=== PATIENT | male | born 1950 | race Caucasian/White ===

== ENCOUNTER 2016-05-21 21:42 | Emergency (ER) | payer MEDICARE, OTHER ==
[~2016-05-21] VITALS: Ht 177.8 cm; Wt 71.3 kg
[~2016-05-21 21:42] MED LIST: AMOX1TAB16 PO; AZIT250T6 PO; LURA40 PO; MIRT15 PO; OMEP10 PO; QUET200T PO; VALP250 PO
[2016-05-21] MEDS ORDERED: BENZ1TAB10 PO (22:08)
[2016-05-21] MEDS ORDERED: HALO5 PO (22:08)
[2016-05-21] MEDS ORDERED: SENN-30 PO (22:08)
[2016-05-21] MEDS ORDERED: CLOZ100 PO (22:08)
[2016-05-21] MEDS ORDERED: TOPI25 PO (22:08)
[2016-05-21] MEDS ORDERED: HALOPERIDOL 5 MG TABLET PO ONE (22:30)
[2016-05-21] MEDS ORDERED: LORazepam 2 MG TABLET PO ONE (22:30)
[2016-05-21 23:40] VITALS: BP 126/77
== END 2016-05-21 23:39 | disposition home or self-care (01) ==
LOC: EMS 21:45
DX: F20.9 Schizophrenia, unspecified (principal); F32.9 Major depressive disorder, single episode, unspecified; F41.9 Anxiety disorder, unspecified; J45.909 Unspecified asthma, uncomplicated; J44.9 Chronic obstructive pulmonary disease, unspecified; K21.9 Gastro-esophageal reflux disease without esophagitis; I10 Essential (primary) hypertension; F17.200 Nicotine dependence, unspecified, uncomplicated; Z88.8 Allergy status to other drugs, medicaments and biological substances
CPT/HCPCS: 99284

== ENCOUNTER 2022-05-01 13:13 | Inpatient (IN) | payer MEDICARE, MEDICAID ==
[~2022-05-01] VITALS: Ht 177.8 cm; Wt 62.3 kg
[~2022-05-01 13:13] MED LIST changes: -AMOX1TAB16 PO; -AZIT250T6 PO; +BENZ1TAB96 PO; +CLOZ100T68 PO; +HALO5TAB2 PO; -LURA40 PO; -MIRT15 PO; -QUET200T PO; +SENN-277 PO; +TOPI25 PO; -VALP250 PO; +VALP250C48 PO
[2022-05-01 15:05] LABS: BASOPHILS % (AUTO) 0.6 % (0.0-2.0); EOSINOPHILS % (AUTO) 1.3 % (1.0-6.0); HEMATOCRIT 41.5 % (41-53); HEMOGLOBIN 13.3 g/dL (13.5-17.5); LYMPHOCYTES # (AUTO) 1.5 K/uL (1.0-4.8); LYMPHOCYTES % (AUTO) 21.2 % (22.0-44.0); MEAN CORPUSCULAR HEMOGLOBIN 30.5 pg (26.0-34.0); MEAN CORPUSCULAR VOLUME 95 fL (80-100); MONOCYTES # (AUTO) 0.7 K/uL (0.1-1.0); MONOCYTES % (AUTO) 9.9 % (2.0-9.0); NEUTROPHILS # (AUTO) 4.8 K/uL (1.8-7.7); PLATELET COUNT (AUTO) 247 K/uL (150-450); RED BLOOD CELL COUNT(AUTO) 4.36 MIL/uL (4.50-5.90)
[2022-05-01 15:14] LABS: ANION GAP 6 mmol/L (8-16); CALCIUM, TOTAL 9.2 mg/dL (8.8-10.5); CARBON DIOXIDE 29 mmol/L (22-29); CHLORIDE 102 mmol/L (98-107); GLOMERULAR FILTR. RATE CALC > 60 mL/min (>60); GLUCOSE,RANDOM 65 mg/dL (70-110); POTASSIUM 4.5 mmol/L (3.5-5.1); SODIUM SERUM 137 mmol/L (136-145); UREA NITROGEN, BLOOD 24 mg/dL (7-18)
[2022-05-01 15:19] LABS: ALANINE AMINOTRANSFERASE 19 U/L (12-78); ALBUMIN 3.4 g/dL (3.4-5.0); ALKALINE PHOSPHATASE 109 U/L (46-116); ASPARTATE AMINOTRANSFERASE 18 U/L (15-37); BILIRUBIN,TOTAL 0.3 mg/dL (0.1-1.0); TOTAL PROTEIN, SERUM 7.1 g/dL (6.4-8.2)
[2022-05-01] MEDS ORDERED: LORazepam 2 MG TABLET PO PRN (16:45)
[2022-05-01] MEDS ORDERED: ZOLPIDEM TARTRATE 10 MG TABLET PO PRN (16:45)
[2022-05-01] MEDS ORDERED: HALOPERIDOL 5 MG TABLET PO PRN (16:45)
[2022-05-01] MEDS ORDERED: OMEP20 PO (16:46)
[2022-05-01 17:11] LABS: COVID AG,FIA SOURCE NASOPHARYNGEAL
[2022-05-02 00:30] VITALS: BP 159/74
[2022-05-02] MEDS: NICOTINE 14 MG/24 HOUR PATCH TD SCH (09:00)
[2022-05-02 10:10] VITALS: BP 160/90
[2022-05-02] MEDS: BENZTROPINE MESYLATE 1 MG TABLET PO SCH ×2 (10:30→17:00)
[2022-05-02] MEDS: HALOPERIDOL 5 MG TABLET PO SCH ×2 (10:30→17:00)
[2022-05-02] MEDS: VALPROIC ACID 250 MG CAPSULE PO SCH ×2 (10:30→17:00)
[2022-05-02] MEDS: TOPIRAMATE 25 MG TABLET PO SCH ×2 (10:30→17:00)
[2022-05-02] MEDS ORDERED: CloNIDine HCL 0.1 MG TABLET PO PRN (15:15)
[2022-05-02] MEDS ORDERED: ACETAMINOPHEN 325 MG TABLET PO PRN (15:15)
[2022-05-02] MEDS ORDERED: NICOTINE 14 MG/24 HOUR PATCH TD PRN (15:15)
[2022-05-02] MEDS ORDERED: MAGNESIUM HYDROXIDE SUSPENSION 30 ML UDCUP PO PRN (15:15)
[2022-05-02] MEDS ORDERED: ONDANSETRON HCL 4 MG TABLET PO PRN (15:15)
[2022-05-02] MEDS ORDERED: IBUPROFEN 400 MG TABLET PO PRN (15:15)
[2022-05-02] MEDS ORDERED: PETROLATUM,WHITE 28 GM JELLY TP PRN (15:15)
[2022-05-02] MEDS ORDERED: DOCUSATE SODIUM 100 MG CAPSULE PO PRN (15:15)
[2022-05-02] MEDS ORDERED: ALBUTEROL SULFATE HFA 90 MCG/PUFF 8 GM INHALER IH PRN (15:15)
[2022-05-02] MEDS ORDERED: GuaiFENesin/D-METHORPHAN [SUGAR-FREE] 200-20MG/10 ML SYRUP UDCUP PO PRN (15:15)
[2022-05-02] MEDS ORDERED: MAG HYDROX/AL HYDROX/SIMETH ES 30 ML SUSPENSION UDCUP PO PRN (15:15)
[2022-05-02] MEDS ORDERED: LOPERAMIDE HCL 2 MG CAPSULE PO PRN (15:15)
[2022-05-02 16:45] VITALS: BP 139/88
[2022-05-02] MEDS: CloZAPine 100 MG TABLET PO SCH (21:49)
[2022-05-03 08:50] VITALS: BP 106/65
[2022-05-03] MEDS: TOPIRAMATE 25 MG TABLET PO SCH ×2 (09:00→16:38)
[2022-05-03] MEDS: BENZTROPINE MESYLATE 1 MG TABLET PO SCH ×2 (09:00→16:37)
[2022-05-03] MEDS: VALPROIC ACID 250 MG CAPSULE PO SCH ×2 (09:00→16:38)
[2022-05-03] MEDS: OMEPRAZOLE 20 MG CAPSULE PO SCH (09:00)
[2022-05-03] MEDS: HALOPERIDOL 5 MG TABLET PO SCH ×2 (09:00→16:38)
[2022-05-03] MEDS: NICOTINE 14 MG/24 HOUR PATCH TD SCH (09:00)
[2022-05-03 16:15] VITALS: BP 106/64
[2022-05-03] MEDS: CloZAPine 100 MG TABLET PO SCH (21:00)
[2022-05-04 08:52] VITALS: BP 146/96
[2022-05-04] MEDS: HALOPERIDOL 5 MG TABLET PO SCH ×2 (09:00→17:00)
[2022-05-04] MEDS: OMEPRAZOLE 20 MG CAPSULE PO SCH (09:00)
[2022-05-04] MEDS: NICOTINE 14 MG/24 HOUR PATCH TD SCH (09:00)
[2022-05-04] MEDS: TOPIRAMATE 25 MG TABLET PO SCH ×2 (09:00→17:00)
[2022-05-04] MEDS: VALPROIC ACID 250 MG CAPSULE PO SCH ×2 (09:00→17:00)
[2022-05-04] MEDS: BENZTROPINE MESYLATE 1 MG TABLET PO SCH ×2 (09:00→17:00)
[2022-05-04 16:20] VITALS: BP 128/75
[2022-05-04] MEDS: CloZAPine 100 MG TABLET PO SCH (20:34)
[2022-05-05] MEDS: HALOPERIDOL 5 MG TABLET PO SCH ×2 (09:00→17:00)
[2022-05-05] MEDS: NICOTINE 14 MG/24 HOUR PATCH TD SCH (09:00)
[2022-05-05] MEDS: OMEPRAZOLE 20 MG CAPSULE PO SCH (09:00)
[2022-05-05] MEDS: TOPIRAMATE 25 MG TABLET PO SCH ×2 (09:00→17:00)
[2022-05-05] MEDS: VALPROIC ACID 250 MG CAPSULE PO SCH ×2 (09:00→17:00)
[2022-05-05] MEDS: BENZTROPINE MESYLATE 1 MG TABLET PO SCH ×2 (09:00→17:00)
[2022-05-05 09:18] VITALS: BP 112/60
[2022-05-05 16:00] VITALS: BP 134/100
[2022-05-05] MEDS: CloZAPine 100 MG TABLET PO SCH (20:58)
[2022-05-06 08:00] VITALS: BP 101/51
[2022-05-06] MEDS: BENZTROPINE MESYLATE 1 MG TABLET PO SCH ×2 (09:00→17:00)
[2022-05-06] MEDS: NICOTINE 14 MG/24 HOUR PATCH TD SCH (09:00)
[2022-05-06] MEDS: VALPROIC ACID 250 MG CAPSULE PO SCH ×2 (09:00→17:00)
[2022-05-06] MEDS: TOPIRAMATE 25 MG TABLET PO SCH ×2 (09:00→17:00)
[2022-05-06] MEDS: OMEPRAZOLE 20 MG CAPSULE PO SCH (09:00)
[2022-05-06] MEDS: HALOPERIDOL 5 MG TABLET PO SCH ×2 (09:00→17:00)
[2022-05-06 16:32] VITALS: BP 141/82
[2022-05-06] MEDS: CloZAPine 100 MG TABLET PO SCH (20:45)
[2022-05-07 08:00] LABS: COVID AG,FIA SOURCE NASAL SWAB
[2022-05-07] MEDS: NICOTINE 14 MG/24 HOUR PATCH TD SCH (09:00)
[2022-05-07] MEDS: TOPIRAMATE 25 MG TABLET PO SCH ×2 (09:00→17:00)
[2022-05-07] MEDS: BENZTROPINE MESYLATE 1 MG TABLET PO SCH ×2 (09:00→17:00)
[2022-05-07] MEDS: VALPROIC ACID 250 MG CAPSULE PO SCH ×2 (09:00→17:00)
[2022-05-07] MEDS: OMEPRAZOLE 20 MG CAPSULE PO SCH (09:00)
[2022-05-07] MEDS: HALOPERIDOL 5 MG TABLET PO SCH ×2 (09:00→17:00)
[2022-05-07 09:30] VITALS: BP 125/74
[2022-05-07 16:42] VITALS: BP 103/74
[2022-05-07] MEDS: CloZAPine 100 MG TABLET PO SCH (20:23)
[2022-05-08] MEDS: VALPROIC ACID 250 MG CAPSULE PO SCH ×2 (09:00→16:32)
[2022-05-08] MEDS: HALOPERIDOL 5 MG TABLET PO SCH ×2 (09:00→16:32)
[2022-05-08] MEDS: NICOTINE 14 MG/24 HOUR PATCH TD SCH (09:00)
[2022-05-08] MEDS: TOPIRAMATE 25 MG TABLET PO SCH ×2 (09:00→16:33)
[2022-05-08] MEDS: OMEPRAZOLE 20 MG CAPSULE PO SCH (09:00)
[2022-05-08] MEDS: BENZTROPINE MESYLATE 1 MG TABLET PO SCH ×2 (09:00→16:32)
[2022-05-08 09:02] VITALS: BP 126/58
[2022-05-08 20:03] VITALS: BP 113/79
[2022-05-08] MEDS: CloZAPine 100 MG TABLET PO SCH (21:00)
[2022-05-09 08:00] VITALS: BP 122/98
[2022-05-09] MEDS: TOPIRAMATE 25 MG TABLET PO SCH ×3 (08:56→17:00)
[2022-05-09] MEDS: NICOTINE 14 MG/24 HOUR PATCH TD SCH ×2 (08:56→09:00)
[2022-05-09] MEDS: VALPROIC ACID 250 MG CAPSULE PO SCH ×3 (08:56→17:00)
[2022-05-09] MEDS: HALOPERIDOL 5 MG TABLET PO SCH ×3 (08:57→17:00)
[2022-05-09] MEDS: OMEPRAZOLE 20 MG CAPSULE PO SCH ×2 (08:57→09:00)
[2022-05-09] MEDS: BENZTROPINE MESYLATE 1 MG TABLET PO SCH ×3 (08:57→17:00)
[2022-05-09 16:00] VITALS: BP 124/65
[2022-05-09 19:43] LABS: COVID AG,FIA SOURCE NASAL SWAB
[2022-05-09] MEDS: CloZAPine 100 MG TABLET PO SCH (21:00)
[2022-05-10 08:38] VITALS: BP 148/83
[2022-05-10 08:45] LABS: BASOPHILS % (AUTO) 0.9 % (0.0-2.0); EOSINOPHILS % (AUTO) 0.8 % (1.0-6.0); HEMATOCRIT 39.8 % (41-53); HEMOGLOBIN 13.2 g/dL (13.5-17.5); LYMPHOCYTES # (AUTO) 2.1 K/uL (1.0-4.8); LYMPHOCYTES % (AUTO) 21.5 % (22.0-44.0); MEAN CORPUSCULAR HEMOGLOBIN 31.2 pg (26.0-34.0); MEAN CORPUSCULAR HGB CONC 33.1 G/dL (31.0-37.0); MEAN CORPUSCULAR VOLUME 94 fL (80-100); MONOCYTES # (AUTO) 0.8 K/uL (0.1-1.0); MONOCYTES % (AUTO) 8.5 % (2.0-9.0); NEUTROPHILS # (AUTO) 6.7 K/uL (1.8-7.7); NEUTROPHILS % (AUTO) 68.3 % (40.0-70.0); PLATELET COUNT (AUTO) 285 K/uL (150-450); RED BLOOD CELL COUNT(AUTO) 4.22 MIL/uL (4.50-5.90)
[2022-05-10] MEDS: BENZTROPINE MESYLATE 1 MG TABLET PO SCH ×2 (09:00→16:58)
[2022-05-10] MEDS: OMEPRAZOLE 20 MG CAPSULE PO SCH (09:00)
[2022-05-10] MEDS: VALPROIC ACID 250 MG CAPSULE PO SCH ×2 (09:00→16:58)
[2022-05-10] MEDS: HALOPERIDOL 5 MG TABLET PO SCH ×2 (09:00→16:59)
[2022-05-10] MEDS: NICOTINE 14 MG/24 HOUR PATCH TD SCH (09:00)
[2022-05-10] MEDS: TOPIRAMATE 25 MG TABLET PO SCH ×2 (09:00→16:59)
[2022-05-10 16:22] VITALS: BP 150/80
[2022-05-10] MEDS: CloZAPine 100 MG TABLET PO SCH (21:00)
[2022-05-11 08:35] VITALS: BP 121/77
[2022-05-11] MEDS: TOPIRAMATE 25 MG TABLET PO SCH ×2 (08:38→16:19)
[2022-05-11] MEDS: OMEPRAZOLE 20 MG CAPSULE PO SCH (08:38)
[2022-05-11] MEDS: BENZTROPINE MESYLATE 1 MG TABLET PO SCH ×2 (08:38→16:17)
[2022-05-11] MEDS: VALPROIC ACID 250 MG CAPSULE PO SCH ×2 (08:38→16:17)
[2022-05-11] MEDS: HALOPERIDOL 5 MG TABLET PO SCH ×2 (08:38→16:18)
[2022-05-11] MEDS: NICOTINE 14 MG/24 HOUR PATCH TD SCH (08:39)
[2022-05-11 17:00] VITALS: BP 110/69
[2022-05-11] MEDS: CloZAPine 100 MG TABLET PO SCH (21:00)
[2022-05-11 21:19] VITALS: BP 167/76
[2022-05-12] MEDS: BENZTROPINE MESYLATE 1 MG TABLET PO SCH ×2 (07:39→17:00)
[2022-05-12] MEDS: OMEPRAZOLE 20 MG CAPSULE PO SCH (07:40)
[2022-05-12] MEDS: VALPROIC ACID 250 MG CAPSULE PO SCH ×2 (07:40→17:00)
[2022-05-12] MEDS: NICOTINE 14 MG/24 HOUR PATCH TD SCH (07:40)
[2022-05-12] MEDS: HALOPERIDOL 5 MG TABLET PO SCH ×2 (07:40→17:00)
[2022-05-12] MEDS: TOPIRAMATE 25 MG TABLET PO SCH ×2 (07:40→17:00)
[2022-05-12 08:00] VITALS: BP 101/62
[2022-05-12] MEDS: CloZAPine 100 MG TABLET PO SCH (20:33)
[2022-05-12 21:34] VITALS: BP 97/62
[2022-05-13 08:40] VITALS: BP 141/87
[2022-05-13] MEDS: TOPIRAMATE 25 MG TABLET PO SCH ×2 (09:00→16:50)
[2022-05-13] MEDS: OMEPRAZOLE 20 MG CAPSULE PO SCH (09:00)
[2022-05-13] MEDS: VALPROIC ACID 250 MG CAPSULE PO SCH ×2 (09:00→16:50)
[2022-05-13] MEDS: HALOPERIDOL 5 MG TABLET PO SCH ×2 (09:00→16:50)
[2022-05-13] MEDS: NICOTINE 14 MG/24 HOUR PATCH TD SCH (09:00)
[2022-05-13] MEDS: BENZTROPINE MESYLATE 1 MG TABLET PO SCH ×2 (09:00→16:50)
[2022-05-13 16:08] VITALS: BP 96/69
[2022-05-13] MEDS: CloZAPine 100 MG TABLET PO SCH (20:14)
[2022-05-14] MEDS: BENZTROPINE MESYLATE 1 MG TABLET PO SCH ×2 (08:41→16:02)
[2022-05-14] MEDS: HALOPERIDOL 5 MG TABLET PO SCH ×2 (08:42→16:02)
[2022-05-14] MEDS: TOPIRAMATE 25 MG TABLET PO SCH ×2 (08:42→16:02)
[2022-05-14] MEDS: OMEPRAZOLE 20 MG CAPSULE PO SCH (08:42)
[2022-05-14] MEDS: NICOTINE 14 MG/24 HOUR PATCH TD SCH (08:42)
[2022-05-14] MEDS: VALPROIC ACID 250 MG CAPSULE PO SCH ×2 (08:42→16:02)
[2022-05-14 09:27] VITALS: BP 119/66
[2022-05-14 16:20] VITALS: BP 120/71
[2022-05-14 20:00] VITALS: BP 125/74
[2022-05-14] MEDS: CloZAPine 100 MG TABLET PO SCH (21:00)
[2022-05-15 08:00] VITALS: BP 110/70
[2022-05-15] MEDS: HALOPERIDOL 5 MG TABLET PO SCH (09:00)
[2022-05-15] MEDS: NICOTINE 14 MG/24 HOUR PATCH TD SCH (09:00)
[2022-05-15] MEDS: BENZTROPINE MESYLATE 1 MG TABLET PO SCH (09:00)
[2022-05-15] MEDS: VALPROIC ACID 250 MG CAPSULE PO SCH (09:00)
[2022-05-15] MEDS: TOPIRAMATE 25 MG TABLET PO SCH (09:00)
[2022-05-15] MEDS: OMEPRAZOLE 20 MG CAPSULE PO SCH (09:00)
[2022-05-15 20:00] VITALS: BP 117/69
[2022-05-16 07:02] LABS: COVID AG,FIA SOURCE NASAL SWAB
[2022-05-16] MEDS: NICOTINE 14 MG/24 HOUR PATCH TD SCH (09:00)
[2022-05-16] MEDS: OMEPRAZOLE 20 MG CAPSULE PO SCH (09:00)
[2022-05-16 09:56] VITALS: BP 116/62
[2022-05-16 18:31] VITALS: BP 109/56
[2022-05-17 04:49] VITALS: BP 126/82
[2022-05-17 08:21] VITALS: BP 115/69
[2022-05-17 08:47] LABS: BASOPHILS % (AUTO) 1.3 % (0.0-2.0); EOSINOPHILS % (AUTO) 2.3 % (1.0-6.0); HEMATOCRIT 37.8 % (41-53); HEMOGLOBIN 12.6 g/dL (13.5-17.5); LYMPHOCYTES # (AUTO) 2.1 K/uL (1.0-4.8); LYMPHOCYTES % (AUTO) 28.1 % (22.0-44.0); MEAN CORPUSCULAR HEMOGLOBIN 31.3 pg (26.0-34.0); MEAN CORPUSCULAR HGB CONC 33.3 G/dL (31.0-37.0); MEAN CORPUSCULAR VOLUME 94 fL (80-100); MONOCYTES # (AUTO) 0.7 K/uL (0.1-1.0); MONOCYTES % (AUTO) 8.9 % (2.0-9.0); NEUTROPHILS # (AUTO) 4.4 K/uL (1.8-7.7); NEUTROPHILS % (AUTO) 59.4 % (40.0-70.0); PLATELET COUNT (AUTO) 377 K/uL (150-450); RED BLOOD CELL COUNT(AUTO) 4.01 MIL/uL (4.50-5.90); RED CELL DISTRIBUTION WIDTH 13.8 % (11.5-14.5)
[2022-05-17] MEDS: NICOTINE 14 MG/24 HOUR PATCH TD SCH (09:00)
[2022-05-17] MEDS: OMEPRAZOLE 20 MG CAPSULE PO SCH (09:00)
[2022-05-17 16:25] VITALS: BP 106/64
[2022-05-17 21:00] VITALS: BP 118/63
[2022-05-18 08:00] VITALS: BP 124/71
[2022-05-18] MEDS: NICOTINE 14 MG/24 HOUR PATCH TD SCH (08:51)
[2022-05-18] MEDS: OMEPRAZOLE 20 MG CAPSULE PO SCH (08:51)
== END 2022-05-18 11:00 | disposition left against medical advice (07) | DRG 885 ==
LOC: EMS 13:25 → 3EX 05-02 00:01
PROVIDERS: ADMIT Psychiatry & Neurology Child & Adolescent Psychiatry; ATTEND Psychiatry & Neurology Child & Adolescent Psychiatry
DX: F20.0 Paranoid schizophrenia (principal); G93.40 Encephalopathy, unspecified; I10 Essential (primary) hypertension; J44.9 Chronic obstructive pulmonary disease, unspecified; R56.9 Unspecified convulsions; F32.A Depression, unspecified; F41.9 Anxiety disorder, unspecified; K21.9 Gastro-esophageal reflux disease without esophagitis; Z53.29 Procedure and treatment not carried out because of patient's decision for other reasons; E78.5 Hyperlipidemia, unspecified; E11.9 Type 2 diabetes mellitus without complications; Y90.9 Presence of alcohol in blood, level not specified; F10.10 Alcohol abuse, uncomplicated; Z20.822 Contact with and (suspected) exposure to COVID-19; Z88.8 Allergy status to other drugs, medicaments and biological substances; Z87.891 Personal history of nicotine dependence; Z59.00 Homelessness unspecified; Z91.14 Patient's other noncompliance with medication regimen
CPT/HCPCS: 80053; 80164; 85025; 99285; G0378; G0480